=== PATIENT | female | born 1955 ===

== ENCOUNTER 2017-06-24 18:33 | Observation (INO) | payer BC ==
--- NOTE | 2017-06-24 19:23 | ED PDOC ---
Arrival/HPI - General Historian: Patient - History of Present Illness Time/Duration: 1 week Symptom Onset: Gradual Symptom Course: Unchanged Activities at Onset: Rest Context: Sitting <Dallin Arora - Last Filed: 06/24/17 21:55> <Yoselin Rivers - Last Filed: 06/24/17 22:04> - General Chief Complaint: High Blood Pressure Time Seen by Provider: 06/24/17 18:54 - History of Present Illness Narrative History of Present Illness (Text): 06/24/17 19:15 This is a 62 yr. old female with a significant past medical history of hypertension and pre-diabetes, who comes into [facility] with elevated blood pressure. The patient states that over the last week and a half it has constantly been elevated. The patient states that at her last doctor's appointment , her blood pressure read 220/100. At that time she was prescribed a blood pressure medicine but has yet to take it due to it not being delivered yet. While visiting her son at the assisted living facility today she asked the nurse to take her blood pressure where read 197/97 at which point she decided to come in since it remained elevated. She states she does take her blood pressure at home and the highest reading was 225/120. She reports lightheadedness, dizziness, nausea, disorientation and headaches. She denies syncopal episodes, changes in vision, changes in speech, numbness, tingling, or facial droop. (Dallin Arora) Past Medical History - Provider Review Nursing Documentation Reviewed: Yes - Infectious Disease Hx of Infectious Diseases: None - Reproductive Menopause: Yes - Cardiac Hx Hypertension: Yes - Psychiatric Hx Substance Use: No - Surgical History Hx Appendectomy: Yes Hx Tubal Ligation: Yes Other/Comment: cyst removal from breast , - Anesthesia Hx Anesthesia: No <Dallin Arora - Last Filed: 06/24/17 21:55> Family/Social History - Physician Review Nursing Documentation Reviewed: Yes Family/Social History: CAD/RI Smoking Status: Unknown If Ever Smoked Hx Alcohol Use: No Hx Substance Use: No <Dallin Arora - Last Filed: 06/24/17 21:55> Allergies/Home Meds <Dallin Arora - Last Filed: 06/24/17 21:55> <Yoselin Rivers - Last Filed: 06/24/17 22:04> Allergies/Adverse Reactions: Allergies No Known Allergies Allergy (Verified 06/24/17 18:53) Home Medications: Home Meds Medication Instructions Recorded Confirmed Aspirin [Ecotrin] 81 mg PO DAILY 06/24/17 06/24/17 Celecoxib [Celebrex] 0 mg PO BID 06/24/17 06/24/17 Ezetimibe [Zetia] 0 mg PO DAILY 06/24/17 06/24/17 Lisinopril [Zestril] 0 mg PO DAILY 06/24/17 06/24/17 Review of Systems - Physician Review All systems were reviewed & negative as marked: Yes - Review of Systems Constitutional: Normal. absent: Fevers, Night Sweats Eyes: Normal. absent: Vision Changes, Eye Pain ENT: Normal. absent: Hearing Changes, Epistaxis, Sinus Congestion Respiratory: Normal. absent: Sputum, Wheezing Cardiovascular: Normal. absent: Chest Pain, Palpitations, Edema, Syncope Gastrointestinal: Normal, Nausea. absent: Abdominal Pain, Constipation, Vomiting Skin: Normal. absent: Rash, Skin Lesions Neurological: Headache, Dizziness. absent: Speech Changes, Facial Droop Endocrine: Normal. absent: Diaphoresis, Polyuria <Dallin Arora - Last Filed: 06/24/17 21:55> Physical Exam Vital Signs Reviewed: Yes Temperature: Afebrile Blood Pressure: Hypertensive Pulse: Regular Respiratory Rate: Normal Appearance: Positive for: Well-Appearing, Non-Toxic Pain Distress: None Mental Status: Positive for: Alert and Oriented X 3 - Systems Exam Head: Present: Atraumatic, Normocephalic Pupils: Present: PERRL. No: Sluggish, Non-Reactive Extroacular Muscles: Present: EOMI Conjunctiva: Present: Normal Mouth: Present: Moist Mucous Membranes Neck: Present: Normal Range of Motion. No: JVD, Lymphadenopathy Respiratory/Chest: Present: Clear to Auscultation, Good Air Exchange. No: Respiratory Distress, Accessory Muscle Use, Wheezes Cardiovascular: Present: Regular Rate and Rhythm, Normal S1, S2, Tachycardic. No: Murmurs, Bradycardic Abdomen: Present: Normal Bowel Sounds. No: Tenderness, Distention, Guarding Upper Extremity: Present: Normal Inspection, NORMAL PULSES. No: Cyanosis, Edema Lower Extremity: Present: Normal Inspection. No: Edema, CALF TENDERNESS Neurological: Present: CN II-XII Intact, Speech Normal Skin: Present: Dry, Normal Color. No: Warm, Rashes Psychiatric: Present: Alert, Oriented x 3, Normal Insight <Dallin Arora - Last Filed: 06/24/17 21:55> Medical Decision Making <Dallin Arora - Last Filed: 06/24/17 21:55> - RAD Interpretation Typing Secretary: Radiologist <Yoselin Rivers - Last Filed: 06/24/17 22:04> ED Course and Treatment: 06/24/17 19:45 Patient came in with an elevated blood pressure. Patient subsequently had lab work done including cbc w/diff, cmp, and cardiac isozymes. Patients will be re- evaluated once lab work returns. (Dallin Arora) 06/24/17 21:49 CT Head Without Intravenous Contrast FINDINGS: Brain: Mild to moderate brain volume loss. No hemorrhage. No significant white matter disease. No edema. Ventricles: Unremarkable. No ventriculomegaly. Bones/joints: Unremarkable. No acute fracture. Soft tissues: Unremarkable. Sinuses: Unremarkable as visualized. No acute sinusitis. Mastoid air cells: Unremarkable as visualized. No mastoid effusion. IMPRESSION: No acute findings. 06/24/17 21:54 In agreement with resident note, which includes further HPI details. Patient was seen and evaluated with resident, came up with plan and treatment together. 06/24/17 22:02 Patient here in the ED with noted history. She had an episode where she said she felt palpitations associated with dizziness and nausea. Patient was on the monitor, which recorded the event; her heart rate was noted to be in the 130s, appearing to be sinus tachycardia. Labs are nondiagnostic. Given event and complaints, she will need further observation on tele. Case discussed with Dr. Fuentes for placement on her service. Will obtain cardiology consult. (Yoselin Rivers) - Lab Interpretations Lab Results: 06/24/17 19:37 06/24/17 19:37 Lab Results 06/24/17 19:37: Sodium 140, Potassium 4.5, Chloride 100, Carbon Dioxide 29, Anion Gap 16, BUN 20, Creatinine 0.7, Est GFR ( Amer) > 60, Est GFR (Non- Af Amer) > 60, Random Glucose 95, Calcium 9.8, Total Bilirubin 0.7, AST 28, ALT 31, Alkaline Phosphatase 69, Lactate Dehydrogenase 458, Total Creatine Kinase 99 , Troponin I 0.01, Total Protein 8.6 H, Albumin 4.6, Globulin 4.1, Albumin/ Globulin Ratio 1.1 06/24/17 19:37: WBC 7.9, RBC 4.64, Hgb 13.5, Hct 40.0, MCV 86.2, MCH 29.1, MCHC 33.8, RDW 13.4, Plt Count 274, MPV 9.3, Gran % 71.6 H, Lymph % (Auto) 20.5 L, [place] % (Auto) 7.3 H, Eos % (Auto) 0.5 L, Baso % (Auto) 0.1, Gran # 5.62, Lymph # 1.6, [place] # 0.6, Eos # 0.0, Baso # 0.01 - RAD Interpretation Radiology Orders: 06/24/17 19:47 HEAD W/O CONTRAST [CT] Stat 06/24/17 20:29 CHEST TWO VIEWS (PA/LAT) [RAD] Stat - Medication Orders Current Medication Orders: Discontinued Medications Clonidine HCl (Catapres) 0.1 mg PO STAT STA Stop: 06/24/17 19:40 Last Admin: 06/24/17 19:49 Dose: 0.1 mg Ondansetron HCl (Zofran Tab) 4 mg PO STAT STA Stop: 06/24/17 19:40 Last Admin: 06/24/17 19:48 Dose: 4 mg <Dallin Arora - Last Filed: 06/24/17 21:55> - PA / CELL STRIPPER / Resident Statement / has reviewed & agrees with the documentation as recorded. / has examined the patient and agrees with the treatment plan. - Scribe Statement The provider has reviewed the documentation as recorded by the Scribe <Yoselin Rivers - Last Filed: 06/24/17 22:04> - Scribe Statement 06/24/2017 Jennifer Harrison Attestation: All medical record entries made by the Scribezio were at my direction and personally dictated by me. I have reviewed the chart and agree that the record accurately reflects my personal performance of the history, physical exam, medical decision making, and the department course for this patient. I have also personally directed, reviewed, and agree with the discharge instructions and disposition. (Yoselin Rivers) Disposition/Present on Arrival - Present on Arrival Any Indicators Present on Arrival: No History of DVT/PE: No History of Uncontrolled Diabetes: No Urinary Catheter: No History of Decub. Ulcer: No History Surgical Site Infection Following: None - Disposition Have Diagnosis and Disposition been Completed?: Yes Disposition Time: 09:45 Patient Plan: Observation, Telemetry <Dallin Arora - Last Filed: 06/24/17 21:55> <Yoselin Rivers - Last Filed: 06/24/17 22:04> - Disposition Diagnosis: Tachycardia with hypertension Disposition: HOSPITALIZED Patient Problems: Current Active Problems Problem Status Onset Tachycardia with hypertension Acute Condition: FAIR
[2017-06-24 19:49] LABS: BASO # 0.01 K/mm3 (0.0-2.0); BASO % 0.1 % (0.0-3.0); EOS % 0.5 % (1.5-5.0); GRAN # 5.62 (1.4-6.5); GRAN % 71.6 % (50.0-68.0); HEMOGLOBIN 13.5 gm/dL (12.0-16.0); LYMPH # 1.6 (1.2-3.4); LYMPH % 20.5 % (22.0-35.0); MEAN CELL VOLUME 86.2 fL (80.0-105.0); MEAN CORPUSCULAR HEMOGLOBIN 29.1 pg (25.0-35.0); MEAN CORPUSCULAR HGB CONC 33.8 g/dl (31.0-37.0); MEAN PLATELET VOLUME 9.3 fl (7.0-11.0); MONO # 0.6 (0.1-0.6); MONO % 7.3 % (1.0-6.0); PLATELET COUNT 274 10^3/uL (120.0-450.0); RBC 4.64 10^6/uL (3.5-6.1); RED CELL DISTRIBUTION WIDTH 13.4 % (11.5-14.5); WHITE BLOOD COUNT 7.9 10^3/ul (4.5-11.0)
[2017-06-24 19:57] LABS: ALB/GLOB RATIO 1.1 (1.1-1.8); ALBUMIN 4.6 g/dL (3.0-4.8); ALT/SGPT 31 U/L (7-56); AST/SGOT 28 U/L (15-39); BLOOD UREA NITROGEN 20 mg/dL (7-21); CALCIUM 9.8 mg/dL (8.4-10.5); GFR AFRICAN-AMERICAN > 60; GFR NON-AFRICAN AMERICAN > 60
[2017-06-24 20:12] LABS: TROPONIN I 0.01 ng/mL
[2017-06-24 23:13] VITALS: BMI 24.4
[2017-06-25 00:13] VITALS: RESP 20
[2017-06-25 01:17] LABS: TROPONIN I 0.02 ng/mL
[2017-06-25 05:51] LABS: ALB/GLOB RATIO 1.1 (1.1-1.8); ALBUMIN 3.8 g/dL (3.0-4.8); ALT/SGPT 27 U/L (7-56); AST/SGOT 26 U/L (15-39); BLOOD UREA NITROGEN 18 mg/dL (7-21); CALCIUM 8.9 mg/dL (8.4-10.5); GFR AFRICAN-AMERICAN > 60; GFR NON-AFRICAN AMERICAN > 60; MAGNESIUM 1.8 mg/dL (1.7-2.2)
[2017-06-25 06:02] VITALS: O2SAT 96
[2017-06-25 06:07] LABS: FREE T4 1.09 ng/dL (0.78-2.19)
--- NOTE | 2017-06-25 07:52 | CT ---
PROCEDURE: CT HEAD WITHOUT CONTRAST. HISTORY: r/o ischemic changes COMPARISON: None available. TECHNIQUE: Axial computed tomography images were obtained through the head/brain without intravenous contrast. Radiation dose: Total exam DLP = 725.84 mGy-cm. This CT exam was performed using one or more of the following dose reduction techniques: Automated exposure control, adjustment of the mA and/or kV according to patient size, and/or use of iterative reconstruction technique. FINDINGS: HEMORRHAGE: No intracranial hemorrhage. BRAIN: No mass effect or edema. Minimal age-appropriate atrophy. Mild periventricular white matter lucency consistent with chronic microvascular ischemic change. No evidence of acute infarct. VENTRICLES: Unremarkable. No hydrocephalus. CALVARIUM: Unremarkable. PARANASAL SINUSES: Unremarkable as visualized. No significant inflammatory changes. MASTOID AIR CELLS: Unremarkable as visualized. No inflammatory changes. OTHER FINDINGS: None. IMPRESSION: No intracranial mass, hemorrhage or evidence of acute infarct. Mild age-appropriate involutional change. Preliminary interpretation of this examination was reported by [facility] at 9:28 p.m. on 06/24/2027. There is concurrence of this report with the preliminary interpretation.
[2017-06-25 08:05] LABS: TROPONIN I 0.02 ng/mL
--- NOTE | 2017-06-25 08:43 | RAD ---
HISTORY: dizzy, tachycardia COMPARISON: 07/11/2013 TECHNIQUE: Chest PA and lateral FINDINGS: LUNGS: No active pulmonary disease. PLEURA: No significant pleural effusion identified. No pneumothorax apparent. CARDIOVASCULAR: Normal. OSSEOUS STRUCTURES: No significant abnormalities. VISUALIZED UPPER ABDOMEN: Normal. OTHER FINDINGS: None. IMPRESSION: No active disease.
--- NOTE | 2017-06-25 09:53 | CARD ---
APPROVED REPORT EKG Measurement Heart [id number] <Conclusion> Normal sinus rhythm Normal ECG
[2017-06-25 12:12] VITALS: BP 148/87; PULSE 58; TEMP 98.6
--- NOTE | 2017-06-25 13:28 | CARD ---
APPROVED REPORT EXAM: Two-dimensional and M-mode echocardiogram with Doppler and color Doppler. INDICATION Hypertension/HCVD 2D DIMENSIONS Left Atrium (2D)3.0 (1.6-4.0cm)IVSd0.8 (0.7-1.1cm) LVDd4.7 (3.9-5.9cm)PWd0.9 (0.7-1.1cm) LVDs3.5 (2.5-4.0cm)FS (%) 24.7 % LVEF (%)49.0 (>50%) M-Mode DIMENSIONS Aortic Root2.30 (2.2-3.7cm)Aortic Cusp Exc.1.60 (1.5-2.0cm) Aortic Valve AoV Peak Jcuatjau139.0cm/Leona Peak GR.4mmHg Mitral Valve MV E Whpmlthu57.3cm/sMV A Cqhildez11.5cm/sE/A ratio1.1 TDI E/Lateral E'0.0E/Medial E'0.0 Tricuspid Valve TR Peak [id number]/sRAP [id number] Peak Gr.19mmHg [id number] LEFT VENTRICLE The left ventricle is normal size. There is normal left ventricular wall thickness. Left ventricle systolic function is low normal.EF-50% There is normal LV segmental wall motion. The left ventricular diastolic function is normal. No left ventricle thrombus noted on this study. There is no ventricular septal defect visualized. There is no left ventricular aneurysm. There is no mass noted in the left ventricle. RIGHT VENTRICLE The right ventricle is normal size. There is normal right ventricular wall thickness. The right ventricular systolic function is normal. ATRIA The left atrium size is normal. The right atrium size is normal. The interatrial septum is intact with no evidence for an atrial septal defect. AORTIC VALVE The aortic valve is thickened but opens well. Trivial AR There is no aortic valvular stenosis. There is no aortic valvular vegetation. MITRAL VALVE The mitral valve is thickened but opens well. Mitral regurgitation is mild. There is no mitral valve stenosis. There is a mild prolapse of the anterior mitral leaflet, in late systole. TRICUSPID VALVE The tricuspid valve leaflets are thickened , but open well. There is trace tricuspid regurgitation. There is no tricuspid valve stenosis. There is no tricuspid valve prolapse or vegetation. PULMONIC VALVE The pulmonic valve is borderline thickened. There is trace pulmonic valvular regurgitation. There is no pulmonic valvular stenosis. GREAT VESSELS The aortic root is normal in size. The ascending aorta is normal in size. The pulmonary artery is normal. The IVC is normal in size and collapses >50% with inspiration. PERICARDIAL EFFUSION There is no pleural effusion. There is a trace pericardial effusion. <Conclusion> Normal Chamber Size.Low normal EF -50% Trivial AR There is a mild prolapse of the anterior mitral leaflet, in late systole. Mitral regurgitation is mild. There is trace tricuspid regurgitation. The IVC is normal in size and collapses >50% with inspiration. There is a trace pericardial effusion.
--- NOTE | 2017-06-25 20:58 | CON ---
DATE: 06/25/2017 CARDIOLOGY CONSULTATION REASON FOR CONSULTATION: Cardiology evaluation, admitted with uncontrolled hypertension, headache, and palpitation. BRIEF CLINICAL HISTORY: This is a 62-year-old female for hypertension for many years, who has recently seen Dr. Worley in her office and was added on medication, but the patient did not get filled with [facility] and was noticing blood pressure at home. At the time she was seen, the blood pressure was 220/100. At that time, she was prescribed blood pressure medication, but it was not delivered as of yet. Yesterday, the patient checked the blood pressure herself and found it to be 197/97. At that point, she decided to come to the emergency room. Denies any chest pain or shortness of breath. She also reports lightheadedness, some dizziness and nausea, but denies any chest pain, denies any shortness of breath, or numbness or facial droop, but complained of occasional palpitation. PAST MEDICAL HISTORY: Significant for hypertension for many years. PAST SURGICAL HISTORY: Significant for removal of sinus pilonidal cyst in 1995, history of removal of fatty tissue from right breast in 2014, and history of appendectomy 12 years ago. CURRENT MEDICATIONS: The patient is taking at home Celebrex, Zetia 10 mg, aspirin 81 mg, and lisinopril. FAMILY HISTORY: Significant for coronary artery disease, father and mother both have coronary artery disease. Her sister, the elder than her had open heart surgery. SOCIAL HISTORY: Denies any history of alcohol abuse. REVIEW OF SYSTEMS: As per HPI. PHYSICAL EXAMINATION: VITAL SIGNS: As follows: Height of the patient 5 feet 3 inches, weight of the patient is 136 pounds, body mass index 24.2 kg/m2. Temperature afebrile, heart rate 60, and blood pressure 132/77. HEENT: PERRLA, intact. NECK: Supple. No carotid bruits or thyromegaly. HEART: S1 and S2. Regular. CHEST: Clear to auscultation. ABDOMEN: Soft. EXTREMITIES: Clubbing and cyanosis negative. LABORATORY DATA: EKG shows normal sinus rate of 83, no acute ST-T changes noted. Blood workup, WBC 7.9, hemoglobin 13.5, hematocrit 40.0, and platelet count 274. Chemistry shows sodium of 140, potassium 4.5, chloride 100, carbon dioxide 29, anion gap of 16, BUN 20, creatinine is 0.7. Troponin was 0.01 at 7 p.m. and 0.02 at 1:45 a.m. The patient had a previous cardiac workup done by Dr. Worley's office and seen by the hide shaker in Dr. Worley's office. The patient had a stress test in 06/2016 at the [facility] and was told negative. IMPRESSION: A 62-year-old female with a past medical history significant for hypertension admitted with uncontrolled hypertension, some discrepancy in the medications, not delivered to her. Now, the pressure is well controlled. History of a stress test in 06/2016, arranged by Dr. Worley at [facility] and was told negative, being followed by hide shaker in [place]'s office. RECOMMENDATIONS: We will follow up CPK and troponin. We will get an echo assess LV function. Adjustment of medication. Once the patient is stable, can be discharged home. Followed up with Dr. Worley as a hide shaker. The patient had a stress test 1 year ago. No need to repeat another stress test because the patient was admitted here with uncontrolled hypertension and no specific cardiac problem. We will recommend an echo to assess LV function and valvular function. The patient gives a history of mitral valve prolapse in the past, so we will get the echo. We will get the lipid profile with hemoglobin A1c. The blood pressure is well controlled. The patient can be discharged home. We will follow with you. Thank you Dr. Fuentes for this opportunity in taking care of patient, Meek Chen. Victoriano Barnett MD cc: Deborah Fuentes MD
--- NOTE | 2017-06-25 23:13 | HP ---
HISTORY OF PRESENT ILLNESS: The patient is 62 years old. States she has been doing well, up until two weeks ago and her blood pressure started to fluctuate and she noted her blood pressure was up to 225 at home. She went to see Dr. Muñoz who changed her medication, but she never received her medication. Yesterday, she started to have headache, dizzy feeling and started to have palpitation. The patient states when she went to see Dr. Muñoz last visit, she was seen by nurse practitioner. Her blood pressure was . The patient states she has been going through some kind of stress because her one son is mentally retarted and has cerebral palsy. She felt funny when her blood pressure was checked it was 197/97 so she decided to come to emergency room for further evaluation. Denies any nausea or vomiting. No diarrhea. No abdominal pain. PAST MEDICAL HISTORY: Significant for hypertension, borderline diabetes and hyperlipidemia. PAST SURGICAL HISTORY: She has pilonidal cyst removed, CS tubal ligation, status post appendectomy and right breast biopsy. SOCIAL HISTORY: Denies smoking, drinking or alcohol use. She is . She has 3 sons, one of them is mentally challenged and she works as air crew officer. ALLERGIES: SHE IS NOT ALLERGIC TO ANY MEDICATION. MEDICATION AT HOME: She is on Celebrex 200 mg daily, Zetia 10 mg daily, aspirin 81 mg daily, lisinopril 40 mg daily and melatonin as needed. REVIEW OF SYSTEMS: Not significant. PHYSICAL EXAMINATION GENERAL: She states she feels 100% better. VITAL SIGNS: She is afebrile. Pulse 68, respirations 20 and blood pressure 113/65. LUNGS: Bilateral fair airflow. No known rhonchi or crackle. HEART: S1 and S2, audible. ABDOMEN: Soft, and nontender. No rebound. No guarding. NEUROLOGIC: The patient is awake and alert, able to communicate. LABORATORY DATA: WBC 7.9, hemoglobin 13, hematocrit 40 and platelets 274. Chemistry; sodium 138, potassium 4.2, chloride 102, CO2 of 28, BUN 18, creatinine 0.8, blood sugar of 96. LFTs are within normal limit. Cholesterol 236. LDL is 160. Thyroid profile is within normal limit. ASSESSMENT: 1. Uncontrolled hypertension. 2. No stiff chest pain. 3. Hyperlipidemia. 4. Borderline hyperglycemia. PLAN: The patient is going to continue lisinopril 40 mg a.m. and she was given prescription of metoprolol ER 50 mg at bedtime. She will followup with Dr. Muñoz next week and close observation and BP monitoring. She is being discharged today in stable condition. Deborah Fuentes MD
== END 2017-06-25 14:38 | disposition home or self-care (01) ==
LOC: ED 18:33 → ERH 21:21 → 2RSO 22:24
PROVIDERS: ADMIT Internal Medicine; ATTEND Internal Medicine
DX: I10 Essential (primary) hypertension (principal); R73.03 Prediabetes; E78.5 Hyperlipidemia, unspecified; R00.0 Tachycardia, unspecified; Z79.82 Long term (current) use of aspirin; Z82.49 Family history of ischemic heart disease and other diseases of the circulatory system
CPT/HCPCS: 36415; 70450; 71020; 80053; 80061; 82550; 83036; 83615; 83735; 84100; 84439; 84443; 84484; 85025; 93005; 93306; 99285; G0378